=== PATIENT | male | born 1965 | race Two or more races ===

== ENCOUNTER 2023-10-03 14:09 | Emergency (ER) | payer MEDICAID, SELFPAY | END 2023-10-03 18:26 | disposition left against medical advice (07) | PROVIDERS: Emergency Provider Emergency Medicine | DX: M54.9 Dorsalgia, unspecified (principal); M79.606 Pain in leg, unspecified; Z53.21 Procedure and treatment not carried out due to patient leaving prior to being seen by health care provider ==

== ENCOUNTER 2024-03-11 09:22 | Outpatient (REF) | payer MEDICAID, SELFPAY ==
--- NOTE | 2024-03-11 09:34 | EMG_ITS ---
Bilateral median and ulnar motor and sensory studies were performed. Bilateral radial sensory studies were performed and paraspinal muscles were tested with a needle. IMPRESSION: 1. [id number]-vl-[id number] bilateral median neuropathy across carpal tunnel. 2. Mild bilateral ulnar neuropathy across cubital tunnel. 3. Underlying sensory and motor peripheral neuropathy. MD MYRIAM Wilson/LOPEZ / [id number]
== END 2024-03-11 09:23 | disposition home or self-care (01) ==
LOC: HO.NEURO 09:22
PROVIDERS: PCP Internal Medicine; Visit Provider Internal Medicine
DX: G56.03 Carpal tunnel syndrome, bilateral upper limbs (principal)
CPT/HCPCS: 95886; 95911

== ENCOUNTER 2024-04-18 13:10 | Outpatient (REF) | payer MEDICAID, SELFPAY ==
--- NOTE | ~2024-04-18 | MR_ITS ---
EXAMINATION: MR LUMBAR SPINE WITHOUT AND WITH CONTRAST CLINICAL INFORMATION: 58-year-old with history of previous lumbar fusion, with low back pain of 5 years' duration, now worsening with numbness, weakness and pain in the legs bilaterally. COMPARISON: None available. TECHNIQUE: MRI of the lumbar spine was obtained using routine sequences with and without contrast. Intravenous contrast: Gadavist 8.0 mL FINDINGS: CORONAL ALIGNMENT: Mild lumbar dextrocurvature, convex to the right at L2-L3. SAGITTAL ALIGNMENT: Mild retrolisthesis at L1-L2 and L3-L4 with otherwise normal lumbosacral alignment. LUMBOSACRAL JUNCTION: Normal. VERTEBRAL BODIES: Vertebral body heights are well maintained. DISC SPACES AND ENDPLATES: There is mild disc volume loss at L5-S1 with mild loss of intradiscal T2-weighted signal consistent with disc degenerative change. Mild disc volume loss noted at L3-L4 with minor spondylosis and mild disc degenerative change. Mild anterolateral spondylosis at L2-L3 and minor anterior marginal spondylosis at L1-L2 with intradiscal degenerative signal changes at L1-L2 and postoperative changes at the L2-L3 level consistent with previous left-sided TLIF procedure. SPINAL CANAL: No abnormal developmental findings. BONE MARROW: Ferromagnetic artifact from metallic hardware at L2-L3 consistent with previous posterior instrumented hardware fusion partially obscures bone marrow at these levels. There is probable type I degenerative marrow signal changes seen along the endplates at L2-L3 with a Schmorl's node along the superior endplate of L3. No suspicious marrow-replacing process or worrisome bone marrow edema is identified within the limitations of the study. CONUS MEDULLARIS: Terminates at L1. Morphology and signal is normal. No abnormal enhancement. INTRADURAL NERVE ROOTS: Within normal limits. No abnormal intradural enhancement. L5-S1: Shallow broad-based central disc protrusion, with left paramedian annular fissuring is noted without significant thecal sac or neural impingement. Prominent epidural fat is noted at this level without canal stenosis. Left paramedian annular fissure contacts the left S1 nerve root sleeve without nerve root compression or displacement. Mild right-sided foraminal narrowing is noted without neural impingement. L4-L5: There is diffuse disc bulging with central enhancing radial annular fissuring with [id number] flattening of the ventral dural sac. There is mild facet joint arthrosis bilaterally, left more than right without central canal stenosis. There is crowding of the subarticular recesses bilaterally, with encroachment on the traversing L5 nerve roots in the subarticular and upper lateral recesses. There is zhaq-ci-tapgkdso right-sided and mild left-sided neural foraminal narrowing without neural impingement. L3-L4: There is concentric disc bulging with a superimposed central to right subarticular extruded disc herniation with mild caudal migration with enhancing annular fissuring. There is flattening of the ventral dural sac asymmetric to the right and there is a prominent dorsal fat pad with ligamentum flavum thickening and moderate facet joint arthropathy bilaterally with bilateral facet joint effusions. There is borderline central canal stenosis and there is disc herniation encroaching on the right lateral recess and impinging on the traversing right L4 nerve root. Mild foraminal narrowing bilaterally without exiting neural impingement. L2-L3: Evidence of previous anterior and posterior fusions at this level, with left-sided hemilaminectomy and partial facetectomy, with enhancing scar tissue on the left side of the dural sac and left ventral epidural space at this level. No significant canal stenosis. There is mild bilateral posterolateral osteophytic ridging of the endplates with no significant neural foraminal stenosis. Postsurgical changes are seen within the posterior annular fibers of the disc centrally and asymmetric to the left with focal intradiscal enhancement at this location. L1-L2: Mild retrolisthesis, with concentric disc bulging and enhancing central annular fissuring with flattening of the ventral dural sac and a prominent dorsal fat pad. The facet are partially obscured by metallic hardware artifact bilaterally. Within these limitations, no significant facet hypertrophic change. There is mild central canal stenosis with mild crowding of the intradural nerve roots. No significant lateral recess or neural foraminal stenosis. PARAVERTEBRAL AND INCLUDED EXTRASPINAL SOFT TISSUES: The visualized paravertebral soft tissues and included retroperitoneal structures are unremarkable within the limitations of the exam. MR/MR lumbar spine wo/w con IMPRESSION: 1. Status post anterior and posterior fusion at the L2-L3 level, as described above, with enhancing scar tissue on the left at this level without significant spinal canal or neural foraminal stenosis. 2. Disc bulging and central to right subarticular extruded disc herniation at L3-L4 with facet joint arthropathy and borderline central canal stenosis with right lateral recess stenosis and impingement on the traversing right L4 nerve root. 3. Disc bulging and facet joint arthrosis at L4-L5 with crowding of the subarticular recesses and encroachment on the traversing L5 nerve roots bilaterally. 4. Central disc protrusion and left paramedian annular fissuring at L5-S1 with mild right-sided foraminal narrowing without neural impingement. 5. Disc bulging and enhancing annular fissuring at L1-L2 with mild central canal stenosis and mild crowding of the intradural nerve roots at this level. Electronically signed by: Thomas Rivera MD 05/07/2024 03:12 PM EDT
[2024-04-18] MEDS: gadobutroL 10 ML VIAL IVPUSH (14:08)
== END 2024-04-18 13:11 | disposition home or self-care (01) ==
LOC: HO.MRI 13:10
PROVIDERS: PCP Internal Medicine; Visit Provider Internal Medicine
DX: M47.26 Other spondylosis with radiculopathy, lumbar region (principal)
CPT/HCPCS: 72158; A9585

== ENCOUNTER 2024-05-27 12:49 | Outpatient (AMB) | payer MEDICAID, SELFPAY ==
--- NOTE | 2024-05-27 13:00 | A.OFFVIS_ITS ---
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 He finds it is painful to open and close jars and bottles. Patient states pain and numbness is worse at night. Has not tried braces, or steroid injections. Denies any prior injuries or surgeries to the hands or arm. Patient would like to discuss left CTR today. 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 He complains of numbness primarily in the thumb, index, middle, and ring fingers bilaterally. Symptoms constant, and worse at night. He says he has occasional numbness in the small fingers when he bends his elbows for prolonged periods. He says he has found no relief from prior treatment options. He denies any prior surgeries. He says he is unemployed and has been for the last year due to spine surgery. [facility] Social History (Updated 05/27/24 @ 13:29 by SUSHILA Worley) Current occupational status: unemployed Current occupation: rt handed Review of Systems Const All systems reviewed & are unremarkable except as noted in HPI and below Physical Exam Vital Signs: BMI result Body Mass Index 23.0 Const General: cooperative, healthy appearing and no acute distress Orientation/consciousness: patient oriented x3 HEENT Head: Yes normocephalic and Yes atraumatic Eyes EOM: EOMs intact bilaterally Resp Effort & Inspection: normal respiratory effort and able to speak in complete sentences Cardio Jugular venous distension: no JVD Skin General skin exam: turgor normal Rashes: no rashes Neuro General: patient oriented x3 Extrem Other: Evaluation of Bilateral Upper Extremity: The patient is alert, oriented, and in no acute distress Neuro: With decreased subjective sensation in the median nerve distribution bilaterally today in clinic. Normal sensation in the ulnar nerve distribution. No thenar or intrinsic wasting Good APB muscle belly firing and good finger cross Vascular: Cap refill brisk ROM: He can make a fist and extend all his digits No locking or catching Skin: No lacerations or abrasions. General: No Ecchymosis. No Erythema or evidence of infection. Nerve Conduction Study: IMPRESSION: 1. Ywpe-gv-rdepjign bilateral median neuropathy across carpal tunnel. 2. Mild bilateral ulnar neuropathy across cubital tunnel. 3. Underlying sensory and motor peripheral neuropathy. Sukhi Alexis MD 03/11/2024 Psych Appearance: grossly normal Affect: normal affect Attitude: cooperative Assessment & Plan Assessment & Plan (1) Carpal tunnel syndrome of right wrist: Code(s): G56.01 - Carpal tunnel syndrome, right upper limb Category: Medical (2) Carpal tunnel syndrome of left wrist: Code(s): G56.02 - Carpal tunnel syndrome, left upper limb Category: Medical (3) Cubital tunnel syndrome on right: Code(s): G56.21 - Lesion of ulnar nerve, right upper limb Category: Medical (4) Cubital tunnel syndrome on left: Code(s): G56.22 - Lesion of ulnar nerve, left upper limb Category: Medical Plan Assessment & Plan: 1. Left Carpal tunnel syndrome, mild-moderate With decreased subjective sensation today in clinic This is his primary complaint today 2. Right Carpal tunnel syndrome, mild-moderate With decreased subjective sensation today in clinic I educated him about this condition I discussed operative and non-operative treatment options The patient would like to proceed with surgery, beginning with the left side He will be mindful if his small finger goes numb while at home, and will contact the clinic for another appointment if he does experience small finger numbness. We may add a cubital tunnel release to his surgery, if possible. The risks and benefits of operative treatment were discussed with the patient and the patient wishes to proceed with surgery. These risks include, but are not limited to risk of damage to blood vessels, nerves, tendons, infection, recurrence, incomplete relief of preoperative symptoms, persistent pain, possible need for further surgery and the risks associated with regional blocks and anesthesia. The plan is to take the patient to the operating room sometime in the next few weeks for the following procedures: 1. Left carpal tunnel release, under local All of the preoperative paperwork including the consent was reviewed today. All the patient's questions were answered. The patient understands that they will be contacted by our bull driver soon to schedule this procedure. He would like to have this done after [place]. He denies Diabetes, blood thinners, asthma, heart, lung, kidney issues 3. Left Cubital tunnel syndrome, mild Symptoms intermittent & occasional 4. Right Cubital tunnel syndrome, mild Symptoms Symptoms intermittent & occasional He is hesitant to consider surgery for his cubital tunnel syndrome Scribed for Regina Lynne MD by Julián Coleman, certified medical technician, on 05/27/24 a t 1:35 PM, EST. Coding Level of Care Code New Pt Level 4 (94462) Diagnoses Carpal tunnel syndrome of right wrist G56.01 Carpal tunnel syndrome of left wrist G56.02 Cubital tunnel syndrome on right G56.21 Cubital tunnel syndrome on left G56.22
[2024-05-27 13:52] VITALS: BMI 23.0
== END 2024-05-27 13:55 | disposition home or self-care (01) ==
PROVIDERS: PCP Internal Medicine; Visit Provider Orthopaedic Surgery
DX: G56.03 Carpal tunnel syndrome, bilateral upper limbs (principal); G56.23 Lesion of ulnar nerve, bilateral upper limbs
CPT/HCPCS: 99204

== ENCOUNTER → 2024-05-27 12:49 | Outpatient (BNVA) | payer MEDICAID, SELFPAY | PROVIDERS: PCP Internal Medicine; Visit Provider Orthopaedic Surgery | DX: G56.03 Carpal tunnel syndrome, bilateral upper limbs (principal); G56.23 Lesion of ulnar nerve, bilateral upper limbs | CPT/HCPCS: 99202 ==

== ENCOUNTER 2024-09-08 07:43 | Day surgery (SDC) | payer MEDICAID, SELFPAY ==
[2024-09-08 08:22] VITALS: BP 123/71; PULSE 61; RESP 16; TEMP 37.3; O2SAT 98; BMI 23.0
--- NOTE | 2024-09-08 09:24 | MHC.SHP ---
Pre-Procedural Eval Section A - 24 Hr Update-Section A only Date of Service: 09/08/24 The patient is an INPATIENT: No Changes since office visit: No Cold of Flu in the past 2 weeks, No New Medical Problems, No Changes in Medication and No Patient answered all questions The patient has been examined within 24 hours of the surgical procedure. The History & Physical has been completed within 30 days and I have reviewed it.: Yes Section B - Complete if H&P > 30 days Chief Complaint: Carpal tunnel syndrome, left upper limb Allergies: Allergies Allergy/AdvReac Type Severity Reaction Status Date / Time ibuprofen [From Motrin] Allergy Unknown Hives Verified 05/27/24 13:30 Plan Diagnosis/Plan: Unchanged I have reviewed the history and physical and performed a pertinent physical examination on my patient. No changes have occurred unless specified. Time Spent With Patient Time: Total time managing care of this patient today ____ minutes.
--- NOTE | 2024-09-08 09:24 | W.PM.OPN ---
Operative Note Operative Note Date of Service: 09/08/24 Narrative: Preop diagnosis: 1. Left Carpal tunnel syndrome Postop diagnosis: same Procedure: 1. Left Carpal tunnel release Surgeon: Regina Lynne MD Metal Crafts Teacher: None Anesthesia: local block using 1% lidocaine with epinephrine Findings: Thickened transverse carpal ligament. EBL: Less than 5 mL Specimens: None Complications: None Disposition: Brought to recovery room in stable condition Plan: Follow-up for 10-14 days for wound check and suture removal Indications: The patient is 58 years old, with left carpal tunnel syndrome that has been unresponsive to nonoperative management. The risks and benefits of operative treatment including but not limited to risk of damage to blood vessels, nerves, tendons, infection, persistent pain, persistent symptoms, or possible need for additional surgery were discussed with the patient and the patient wishes to proceed with surgery. Procedure: Once consent was obtained a local block was performed using a combination of 1% lidocaine with epinephrine. The patient was then brought back to the operating suite and placed on the operative table in supine position. The left upper extremity was prepped and draped in a standard surgical fashion. Once assured that we had a good block, a 2.0 cm longitudinal incision was made centered over the carpal tunnel. The incision was made through the skin to the subcutaneous tissues using a #15 blade. Dissection was made down to the level of the transverse carpal ligament with care being taken to protect the palmar cutaneous nerve. Once the transverse carpal ligament was clearly visualized, a longitudinal incision was made in the transverse carpal ligament 1st using a #15 blade, then using tenotomy scissors under direct visualization. Care was taken to look for and protect the motor branch of the median nerve when seen in this area. Once satisfied with our carpal tunnel release the wound was copiously irrigated with normal saline and hemostasis was obtained with a brief period of local pressure. The skin edges were reapproximated with some 5.0 nylon suture material and a sterile dressing was applied. The patient appears to have tolerated the procedure well and with no complications. All digits were well vascularized at the conclusion of the case.
[2024-09-08 10:14] VITALS: BP 118/73; PULSE 62; RESP 20; O2SAT 98
== END 2024-09-08 10:16 | disposition home or self-care (01) ==
PROVIDERS: PCP Internal Medicine; Visit Provider Orthopaedic Surgery
PROC: (CPT 64721; principal; 2024-09-08 08:50)
DX: G56.02 Carpal tunnel syndrome, left upper limb (principal); R20.0 Anesthesia of skin; R20.2 Paresthesia of skin; Z79.1 Long term (current) use of non-steroidal anti-inflammatories (NSAID); Z56.0 Unemployment, unspecified; Z98.890 Other specified postprocedural states
CPT/HCPCS: 64721; J0171; J2003

== ENCOUNTER → 2024-09-08 07:43 | Outpatient (BNV) | payer MEDICAID, SELFPAY | PROVIDERS: PCP Internal Medicine; Visit Provider Orthopaedic Surgery | DX: G56.02 Carpal tunnel syndrome, left upper limb (principal) | CPT/HCPCS: 64721 ==

== ENCOUNTER 2024-11-17 14:26 | Outpatient (AMB) | payer MEDICAID, SELFPAY ==
--- NOTE | 2024-11-17 15:10 | MHC.OFFVIS ---
Vital Signs 11/17/24 15:22 Height 5 ft 10 in Weight 160 lb BMI 23.0 Intake Visit Reasons: PO LT CTR 09/08/24 AR Intake Note: Doug is a 59 year old right hand dominant male who presents today for a post operative LT CTR, DOS 09/08/24 AR. Patient reports he is doing well, however he is having a cramping sensation in his thumb, RF, and MF. States having mild pain with the cramping and at times will drop items. He continues to attend OT. Patient would like to hold off on RT CTR and he will contact office when he is ready to schedule. Pivot End Polisher Required: Yes Pivot End Polisher Services: Pivot End Polisher Present Pivot End Polisher Name: ID# [id number] Allergies ibuprofen [From Motrin] Allergy (Unknown, Verified 11/17/24 15:18) Hives HPI HPI PO LT CTR 09/08/24 AR: Details: Doug is a 59 year old right hand dominant male who presents today for a post operative LT CTR, DOS 09/08/24 AR. Patient reports he is doing well, however he is having a cramping sensation in his thumb, RF, and MF. States having mild pain with the cramping and at times will drop items. Patient was previously referred to occupational therapy, but states that his 1st appointment is in 2 weeks. He continues to attend OT. Patient would like to hold off on RT CTR and he will contact office when he is ready to schedule. [facility] Social History Current occupational status: unemployed Current occupation: rt handed Review of Systems Const All systems reviewed & are unremarkable except as noted in HPI and below Physical Exam Vital Signs: BMI result Body Mass Index 23.0 Const General: cooperative, healthy appearing and no acute distress Orientation/consciousness: patient oriented x3 HEENT Head: Yes normocephalic and Yes atraumatic Eyes EOM: EOMs intact bilaterally Resp Effort & Inspection: normal respiratory effort and able to speak in complete sentences Cardio Jugular venous distension: no JVD Skin General skin exam: turgor normal Rashes: no rashes Neuro General: patient oriented x3 Extrem Other: Evaluation of Bilateral Upper Extremity: The patient is alert, oriented, and in no acute distress Neuro: Normal subjective sensation in the median nerve distribution of the left hand today in clinic. Normal sensation in the ulnar nerve distribution. No thenar or intrinsic wasting Good APB muscle belly firing and good finger cross Vascular: Cap refill brisk ROM: He can make a fist and extend all his digits No locking or catching Skin: No lacerations or abrasions. General: No Ecchymosis. No Erythema or evidence of infection. Nerve Conduction Study: IMPRESSION: 1. Otkk-it-eyrfpvlf bilateral median neuropathy across carpal tunnel. 2. Mild bilateral ulnar neuropathy across cubital tunnel. 3. Underlying sensory and motor peripheral neuropathy. Sukhi Alexis MD 03/11/2024 Psych Appearance: grossly normal Affect: normal affect Attitude: cooperative Assessment & Plan Assessment & Plan (1) Cubital tunnel syndrome on right: Code(s): G56.21 - Lesion of ulnar nerve, right upper limb Category: Medical (2) Carpal tunnel syndrome of right wrist: Code(s): G56.01 - Carpal tunnel syndrome, right upper limb Category: Medical Plan 1. Status post left carpal tunnel release DOS 09/08/2024 Patient appears to be recovering well post Patient is educated about the typical recovery course At this time, patient was informed that he should follow through with previously scheduled occupational therapy appointment, as this will be likely the best treatment for his cramping Patient was amenable to this plan Patient will follow-up in 8 weeks to discuss potential right carpal tunnel release, sooner with any acute concerns Coding Level of Care Code Global (73216) Diagnoses Cubital tunnel syndrome on right G56.21 Carpal tunnel syndrome of right wrist G56.01
[2024-11-17 15:22] VITALS: BMI 23.0
--- OUTSIDE RECORDS SUMMARY | 2024-11-17 16:21 | XMS_ITS | Clinical Summary ---
Author Organization 175 [facility] Address [address] [place] [address] Phone Care Team Providers Care Audio Engineer Name Role Phone Kimmy Jamison MD Primary Care Provider Allergies Active Allergy Reactions Criticality Noted Date Comments Ibuprofen Rash 06/27/2024 Medications diclofenac (VOLTAREN) 75 mg EC tablet 1 tablet (75 mg total). 4 Active methocarbamoL (ROBAXIN) 750 mg tablet 1 tablet (750 mg total). 4 Active sertraline (ZOLOFT) 100 mg tablet Take 1 tablet (100 mg total) by mouth 1 (one) time each day. 4 Active gabapentin (NEURONTIN) 300 mg capsuleIndicati ons:Lumbar spondylosis Take 1 capsule (300 mg total) by mouth 3 (three) times a day. Start by taking 1 capsule nightly for 3 days then increase to 3 times per day if tolerated without drowsiness in the morning. 90 each 4 Active polyethylene glycol (Golytely) 236-22.74-6.74 -5.86 gram solution Take 4L by mouth once for one dose. May substitue any PEG. Starting at 6PM the night before your procedure drink 1 8oz glasses at your own pace until you complete half of the gallon. Finish 2nd half of the gallon 5 hours before your procedure. 4000 mL 5 Active bisacodyL (DULCOLAX) 5 mg EC tablet Take 2 tablets by mouth right before beginning bowel prep. See instructions provided by the office 2 tablet 5 Active acetaminophen (TYLENOL) 500 mg tablet Take 2 tablets (1,000 mg total) by mouth every 6 (six) hours if needed for mild pain for up to 10 days. 30 tablet 5 025 bacitracin (bacitracin zinc) 500 unit/gram ointment Apply 1 Application topically 2 (two) times a day for 5 days. 120 g 5 025 Active Problems Problem Noted Date Diagnosed Date Lumbar spondylosis 06/27/2024 Assessment & Plan (06/27/2024 5:25 PM EST): I discussed the new MRI in detail with Mr. Child. This shows the left-sided decompression with interbody fusion and pedicle screws at L2-3 consistent with the x-rays that he brought with him from [place]. He has some degenerative changes at other levels but no severe central stenosis and no significant left-sided nerve root compression so I believe his current symptoms are just residual from preop. He is significantly better than he was preop but still has left greater than right leg pain and feels unbalanced. He is currently off all previously prescribed medication. He has never tried gabapentin and I think this may help with his residual radiculopathy. I have given him a 1 month prescription and asked that he contact us after the first 2 to 3 weeks to see if he has noticed any benefit. If not, we will provide a new referral to physical therapy. Encounters Date Type Department Care Team Description 10/18/2024 12:20 PM EST - 10/18/2024 1:[address] [facility] [address] [place] [phone] Visit for suture removal (Primary Dx); Carpal tunnel syndrome of left wrist Discharge Disposition: Home or Self Care 09/04/2024 6:07 PM EST - 09/04/2024 8:[address] [facility] [address] [place] [phone] Discharge Disposition: Home or Self Care 09/04/2024 1:30 PM EST - 09/04/2024 5:50 PM EST [facility] [address] [place] [id number] Discharge Disposition: Home or Self Care from Last 3 Months Surgical History Surgery Date Site/Laterality Comments LUMBAR FUSION Medical History Medical History Date Comments Hypertension Depression Social History Tobacco Use Types Packs/Day Years Used Date Smoking Tobacco: Every Day Cigarettes Tobacco Cessation:Ready to Q uit: Not Asked; Counseling Given: Not Answered Sex and Gender Information Value Date Recorded Sex Assigned at Male 09/04/2024 9:39 PM EST Legal Sex Male 2:27 AM EST Gender Identity Male 09/04/2024 9:39 PM EST Sexual Orientation Not on file Obstetrics History Last Filed Vital Signs Vital Sign Reading Time Taken Comments Blood Pressure 114/101 10/18/2024 12:00 PM EST Pulse 89 10/18/2024 12:00 PM EST Temperature 36.4 ??C (97.5 ??F) 10/18/2024 12:[address] Respiratory Rate 16 10/18/2024 12:00 PM EST Oxygen Saturation 97% 10/18/2024 12:00 PM EST Inhaled Oxygen Concentration - - Weight 79.8 kg (176 lb) 10/18/2024 12:00 PM EST Height 177.8 cm (5' 10 ) 10/18/2024 12:00 PM EST Body Mass Index 25.25 10/18/2024 12:00 PM EST Plan of Treatment Upcoming Encounters Date Type Department Care Team (Late st Contact Info) Description 12/01/2024 1:30 PM EDT Hospital Encounter [facility] Endoscopy [address] [place] [phone] Scotty Luu DO 175 [facility] [address] [place] [address] Health Maintenance Due Date Last Done Comments DTaP,Tdap,and Td Vaccines (1 - Tdap) 1984 Hepatitis B Vaccines (1 of 3 - 19+ 3-dose series) 1984 Pneumococcal Vaccine: 50+ Ye ars (1 of 2 - PCV) 1984 Pneumococcal Vaccine: Pediat rics (0 to 5 Years) and At-Risk Patients (6 to 64 Years) (1 of 2 - PCV) 1984 Zoster Vaccines (1 of 2) 2015 Cholesterol Screening (Lipid Panel) 07/23/2022 Colorectal Cancer Screening: Colonoscopy 07/23/2022 Depression Screening 07/23/2022 HIV Screening 07/23/2022 Hepatitis C Screening 07/23/2022 Social Influencers of Health Screening 07/23/2022 COVID-19 Vaccine ( - 2023-2 5 season) 2024 Influenza Vaccine (#1) 2024 RSV Immunization Patients 60 + Years Old (1 - 1-dose 75+ series) 2040 HIB Vaccines Aged Out No longer eligi ble based on patient's age to complete this topic HPV Vaccines Aged Out No longer eligi ble based on patient's age to complete this topic Hepatitis A Vaccines Aged Out No long er eligible based on patient's age to complete this topic IPV Vaccines Aged Out No longer eligi ble based on patient's age to complete this topic MMR Vaccines Aged Out No longer eligi ble based on patient's age to complete this topic Meningococcal ACWY Vaccine Aged Out N o longer eligible based on patient's age to complete this topic Meningococcal B Vacine Aged Out No lo nger eligible based on patient's age to complete this topic RSV Immunization Patients Un kathryn 20 months Aged Out No longer eligible b ased on patient's age to complete this topic Varicella Vaccines Aged Out No longer eligible based on patient's age to complete this topic Procedures Procedure Name Priority Date/Time Associated Diagnosis Comments XR HAND 3+ VIEWS LEFT STAT 10/18/2024 12:38 PM EST CBC WITH AUTO DIFFERENTIAL STAT 10/18/2024 12:05 PM EST BASIC METABOLIC PANEL STAT 10/18/2024 12:05 PM EST CBC AND DIFFERENTIAL STAT 10/18/2024 12:05 PM EST from Last 3 Months Results * XR Hand 3+ Views Left (10/18/2024 12:38 PM EST) Anatomical Region Laterality Modality Upper Extremities, Hand Left Radiogra phic Imaging 10/18/2024 12:4 5 PM EST Impressions 10/18/2024 12:45 PM EST FINDINGS/IMPRESSION: No acute fracture or dislocation. ??Joint spaces are relatively preserved. ??No focal soft tissue swelling. ??Ulnar positive deviation at the wrist with lucency along the ulnar and proximal aspect of the lunate, suggesting chronic ulnar impaction. -------- FINAL REPORT -------- Dictated By: NANCY CUTLER Dictated Date: 10/18/2024 12:45 ET Assigned Physician: NANCY CUTLER Reviewed and Electronically Signed By: NANCY CUTLER Signed Date: 10/18/2024 12:45 ET Workstation ID: [id number] Transcribed By: Self Edit Transcribed Date: 10/18/2024 12:45 ET Narrative 10/18/2024 12:45 PM EST XR HAND 3+ VIEWS LEFT INDICATION: ??Pain TECHNIQUE: XR HAND 3+ VIEWS LEFT COMPARISON: No priors available. Procedure Note Nancy Cutler MD - 10/18/2024 XR HAND 3+ VIEWS LEFT INDICATION: Pain TECHNIQUE: XR HAND 3+ VIEWS LEFT COMPARISON: No priors available. IMPRESSION: FINDINGS/IMPRESSION: No acute fracture or dislocation. Joint spaces arerelatively preserved. No focal soft tissue swelling. Ulnar positivedeviation at the wrist with lucency along the ulnar and proximal aspect ofthe lunate, suggesting chronic ulnar impaction. -------- FINAL REPORT -------- Dictated By: NANCY CUTLER Dictated Date: 10/18/2024 12:45 ET Assigned Physician: NANCY CUTLER Reviewed and Electronically Signed By: NANCY CUTLER Signed Date: 10/18/2024 12:45 ET Workstation ID: [id number] Transcribed By: Self Edit Transcribed Date: 10/18/2024 12:45 ET Lori CASE IMG XR PROCEDURES Final Result * (ABNORMAL) CBC auto differential (10/18/2024 12:05 PM EST) WBC 8.9 4.8 - 10.8 K/[facility] LAB HEMETOLOGY METHOD 10/18/2024 12:18 PM EST [facility] RBC 5.00 4.50 - 5.50 M/mcL LAB HEMETOLOGY METHOD 10/18/2024 12:18 PM [facility] Hemoglobin 14.1 13.5 - 17.5 g/dL LAB HEMETOLOGY METHOD 10/18/2024 12:18 PM [facility] Hematocrit 45.6 42.0 - 54.0 % LAB HEMETOLOGY METHOD 10/18/2024 12:18 PM [facility] MCV 90.5 79.0 - 98.0 FL LAB HEMETOLOGY METHOD 10/18/2024 12:18 PM [facility] MCH 28.0 27.0 - 32.0 pcg LAB HEMETOLOGY METHOD 10/18/2024 12:18 PM [facility] MCHC 30.9(L) 32.0 - 37.0 g/dL LAB HEMETOLOGY METHOD 10/18/2024 12:18 PM [facility] RDW 14.7 11.0 - 15.0 % LAB HEMETOLOGY METHOD 10/18/2024 12:18 PM [facility] Platelets 365 130 - 400 K/mcL LAB HEMETOLOGY METHOD 10/18/2024 12:18 PM [facility] MPV 9.5 7.0 - 11.0 FL LAB HEMETOLOGY METHOD 10/18/2024 12:18 PM [facility] NRBC 0.0 <1.0 % LAB HEMETOLOGY METHOD 10/18/2024 12:18 PM [facility] NRBC Absolute 0.00 <0.10 K/mcL LAB HEMETOLOGY METHOD 10/18/2024 12:18 PM [facility] Neutrophils Relative 60.6 % LAB HEMETOLOGY METHOD 10/18/2024 12:18 PM [facility] Lymphocytes Relative 30.3 % LAB HEMETOLOGY METHOD 10/18/2024 12:18 PM EST [facility] Monocytes Relative 6.7 % LAB HEMETOLOGY METHOD 10/18/2024 12:18 PM [facility] Eosinophils Relative 1.5 % LAB HEMETOLOGY METHOD 10/18/2024 12:18 PM [facility] Basophils Relative 0.3 % LAB HEMETOLOGY METHOD 10/18/2024 12:18 PM [facility] Immature Granulocytes Relative 0.6 % LAB HEMETOLOGY METHOD 10/18/2024 12:18 PM [facility] Neutrophils Absolute 5.37 1.50 - 7.00 K/mcL LAB HEMETOLOGY METHOD 10/18/2024 12:18 PM [facility] Lymphocytes Absolute 2.68 1.00 - 5.00 K/mcL LAB HEMETOLOGY METHOD 10/18/2024 12:18 PM [facility] Monocytes Absolute 0.59 0.20 - 1.00 K/mcL LAB HEMETOLOGY METHOD 10/18/2024 12:18 PM [facility] Eosinophils Absolute 0.13 0.00 - 0.50 K/mcL LAB HEMETOLOGY METHOD 10/18/2024 12:18 PM [facility] Basophils Absolute 0.03 0.00 - 0.20 K/mcL LAB HEMETOLOGY METHOD 10/18/2024 12:18 PM [facility] Immature Granulocytes Absolute 0.05(H) 0.00 - 0.03 K/mcL LAB HEMETOLOGY METHOD 10/18/2024 12:18 PM [facility] Blood Venous blood specimen / Unknown Venipuncture / Unknown 10/18/2024 12:05 PM EST 10/18/2024 12:12 PM EST us Diego Seay MD LAB BLOOD ORDERABLES Final Resu lt [facility] [address] [place] [address], * Basic metabolic panel (10/18/2024 12:05 PM EST) Sodium 141 133 - 145 mmol/L LAB CHEMISTRY METHOD 10/18/2024 12:53 PM [facility] Potassium 4.5 3.5 - 5.5 mmol/L LAB CHEMISTRY METHOD 10/18/2024 12:53 PM [facility] Chloride 108 96 - 110 mmol/L LAB CHEMISTRY METHOD 10/18/2024 12:53 PM [facility] CO2 28 21 - 32 mmol/L LAB CHEMISTRY METHOD 10/18/2024 12:53 PM [facility] Anion Gap 5 3 - 11 LAB CHEMISTRY METHOD 10/18/2024 12:53 PM [facility] Glucose 99 70 - 100 mg/dL LAB CHEMISTRY METHOD 10/18/2024 12:53 PM [facility] BUN 11 5 - 25 mg/dL LAB CHEMISTRY METHOD 10/18/2024 12:53 PM [facility] Creatinine 0.95 0.70 - 1.30 mg/dL LAB CHEMISTRY METHOD 10/18/2024 12:53 PM [facility] eGFR 92 >=60 mL/min/1. 73m2 LAB CHEMISTRY METHOD 10/18/2024 12:53 PM [facility] Comment:Calculation based on the??Chronic Kidney Disease Epidemiology Collaboration (CKD-EPI) equation refit??without adjustment for race. BUN/Creatinine Ratio 11.6 LAB CHEMISTRY METHOD 10/18/2024 12:53 PM [facility] Calcium 9.4 8.5 - 10.5 mg/dL LAB CHEMISTRY METHOD 10/18/2024 12:53 PM [facility] Blood Venous blood specimen / Unknown Venipuncture / Unknown 10/18/2024 12:05 PM EST 10/18/2024 12:11 PM EST us Diego Seay MD LAB BLOOD ORDERABLES Final Resu lt [facility] ([facility]) [facility] [address] [place] [address], [place] [phone] from Last 3 Months Insurance MEDICAID - [place] Care Teams Audio Engineer Relationship Specialty Start Date End Date Kimmy Jamison MD [address] [facility] [address] [place], [place] PCP - General Internal Medicine 06/26/24
== END 2024-11-17 15:27 | disposition home or self-care (01) ==
LOC: HO.HOS 14:27
PROVIDERS: PCP Internal Medicine
DX: G56.21 Lesion of ulnar nerve, right upper limb (principal); G56.01 Carpal tunnel syndrome, right upper limb
CPT/HCPCS: 99024

== ENCOUNTER → 2024-11-17 14:26 | Outpatient (BNVA) | payer MEDICAID, SELFPAY | PROVIDERS: PCP Internal Medicine | DX: G56.21 Lesion of ulnar nerve, right upper limb (principal); G56.01 Carpal tunnel syndrome, right upper limb; R25.2 Cramp and spasm; Z48.811 Encounter for surgical aftercare following surgery on the nervous system; Z98.890 Other specified postprocedural states | CPT/HCPCS: 99212 ==